=== PATIENT | female | born 1980 | race Caucasian/White ===

== ENCOUNTER 2017-01-28 13:27 | Emergency (ER) | payer OTHER ==
[2017-01-28] MEDS ORDERED: NS 1,000 ML IV ONE (13:54)
--- NOTE | 2017-01-28 13:56 | CPEKG ---
Heart Rate: 86 RR Interval: 698 P-R Interval: 124 QRSD Interval: 86 QT Interval: 352 QTC Interval: 421 P Chandler: 62 QRS Chandler: 82 T Wave Chandler: 8 EKG Severity - ABNORMAL ECG - EKG Impression: SINUS RHYTHM EKG Impression: RIGHT ATRIAL ABNORMALITY Electronically Signed By: Robin Méndez 01-Feb-2017 15:54:06
--- NOTE | 2017-01-28 13:59 | EDPHY ---
H & P Stated Complaint: pain in l chest above breast increases with movement/deep breath HPI/ROS: HPI CHIEF COMPLAINT: Left-sided sharp stabbing pain when she breathes in HISTORY OF PRESENT ILLNESS: The patient very pleasant 36-year-old female no significant medical history does not take any daily medications, not on control, no history of DVT or PE or cardiac disease. No family history of premature cardiac disease or sudden cardiac . She presents emergency room with over 24 hours of sharp stabbing left-sided lateral chest pain. It occurs when she breathes in when she takes a deep breath in. Last when she breathes out. Does not radiate anywhere. States during the night that it did feel more discomfort last night. No nausea no vomiting no diaphoresis, no neck pain, arm pain, numbness or tingling. No chest pressure. Describes the pain as sharp stabbing inspiratory. Additionally she tells me she has been working out vigorously recently more working out this past week than she normally does. She usually runs, pulse her daughter in a pulled behind, and also has been taking new exercise class. She was unclear sure if she injured her chest or pulled something. She denies pain with arm movement. Past Medical History: No significant medical history Past Surgical History: No significant surgical history Social History: Denies daily use of drugs alcohol tobacco products Family History: No premature cardiac disease, or cardiac disease in her family ROS REVIEW OF SYSTEMS: A comprehensive 10 point review of systems is otherwise negative aside from elements mentioned in the history of present illness. Exam Constitutional appears well nontoxic, triage nursing summary reviewed, vital signs reviewed, awake/alert. Eyes normal conjunctivae and sclera, EOMI, PERRLA. HENT normal inspection, atraumatic, moist mucus membranes, no epistaxis, neck supple/ no meningismus, no raccoon eyes. Respiratory clear to auscultation bilaterally, normal breath sounds, no respiratory distress, no wheezing. Cardiovascular rate normal, regular rhythm, no murmur, no edema, distal pulses normal. Gastrointestinal soft, non-tender, no rebound, no guarding, normal bowel sounds, no distension, no pulsatile mass. Genitourinary no CVA tenderness. Musculoskeletal no midline vertebral tenderness, full range of motion, no calf swelling, no tenderness of extremities, no meningismus, good pulses, neurovascularly intact. Skin pink, warm, & dry, no rash, skin atraumatic. Neurologic awake, alert and oriented x 3, AAOx3, moves all 4 extremities equally, motor intact, sensory intact, CN II-XII intact, normal cerebellar, normal vision, normal speech. Psychiatric normal mood/affect. Heme/Lymph/Immune no lymphadenopathy. 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 Re-evaluation: EKG interpretation by me on record in [employer] system. Impression time of EKG 1354, this is sinus rhythm 86, I do not appreciate any acute ischemic change on this EKG. There is no ST elevation, ST depression, T-wave abnormalities. Normal intervals. No signs of cardiac arrhythmia. Unremarkable EKG. 1511: Re-examination at this time this patient is resting comfortably she has no chest pain. She feels better after IV Toradol. In review of her workup here chest x-ray two view is unremarkable for acute cardiopulmonary disease. Her EKG does not show ischemia. Her troponin is negative D-dimer negative. Blood counts are appropriate. Symptoms are consistent with pleurisy. Improved after Toradol. Doubt acute coronary syndrome. I feel comfortable allowing her to go home. Rest her chest no strenuous exercise. Take anti-inflammatories if she has pain. She has severe pain I do recommend she return to the emergency room this includes severe chest pain, shortness of breath, nausea, vomiting, sweating. Fever. She understands. She may also follow up with Cardiology on outpatient basis for chest pain evaluation. However clinically here in emergency room with do not feel that this is her heart giving her this pain. Specifically I do not feel she has angina ACS or significant pulmonary pathology. EKG interpretation by me on record in [employer] system. Impression this is a repeat EKG time of EKG 1534 sinus rhythm rate of 70, no acute ischemic change. Specifically no ST elevation, ST depression, T-wave abnormalities. No prolonged intervals. PVC present. Otherwise unremarkable EKG. Repeat EKG is nonischemic. Unchanged. Repeat troponin negative. Patient feels much better after IV Toradol. Safe for discharge. Final diagnosis pleurisy. She understands return emergency room if she develops worsening symptoms questions or concerns. Source: Patient - Personal History LMP (Females 10-55): 22-28 Days Ago Current Tetanus/Diphtheria Vaccine: Yes - Medical/Surgical History Hx Asthma: No Hx Chronic Respiratory Disease: No Hx Diabetes: No Hx Cardiac Disease: No Hx Renal Disease: No Hx Cirrhosis: No Hx Alcoholism: No Hx HIV/AIDS: No Hx Splenectomy or Spleen Trauma: No Other PMH: Childbirth - Social History Smoking Status: Former smoker Constitutional: Initial Vital Signs Temperature (C) 37.1 C 01/28/17 13:41 Heart Rate 75 01/28/17 13:41 Respiratory Rate 20 01/28/17 13:41 Blood Pressure 99/57 L 01/28/17 13:41 O2 Sat (%) 100 01/28/17 13:41 O2 Delivery Mode Room Air Allergies/Adverse Reactions: No Known Allergies Allergy (Verified 01/28/17 13:41) Home Medications: Medication Instructions Recorded NK [No Known Home Meds] 01/13/14 Medical Decision Making - Diagnostics Imaging Results: Imaging Impressions Chest X-Ray 01/28/17 13:54 Impression: Normal. No explanation for pain. - Data Points Laboratory Results: Laboratory Results 01/28/17 13:55 01/28/17 13:55 01/28/17 01/28/17 01/28/17 15:30 13:55 13:55 WBC RBC Hgb Hct MCV MCH MCHC RDW Plt Count MPV Neut % (Auto) Lymph % (Auto) [place] % (Auto) Eos % (Auto) Baso % (Auto) Nucleat RBC Rel Count Absolute Neuts (auto) Absolute Lymphs (auto) Absolute Monos (auto) Absolute Eos (auto) Absolute Basos (auto) Absolute Nucleated RBC Immature Gran % Immature Gran # PT INR APTT D-Dimer Sodium 139 mEq/L mEq/L (134-144) Potassium 4.0 mEq/L mEq/L (3.5-5.2) Chloride 106 mEq/L mEq/L (97-110) Carbon Dioxide 23 mEq/l mEq/l (22-31) Anion Gap 10 mEq/L mEq/L (8-16) BUN 11 mg/dL mg/dL (7-23) Creatinine 0.8 mg/dL mg/dL (0.6-1.0) Estimated GFR > 60 Glucose 78 mg/dL mg/dL (70-100) Calcium 9.2 mg/dL mg/dL (8.5-10.4) Magnesium 2.1 mg/dL mg/dL (1.6-2.3) Total Bilirubin 2.0 mg/dL H mg/dL (0.1-1.4) Conjugated Bilirubin 0.3 mg/dL mg/dL (0.0-0.5) Unconjugated Bilirubin 1.7 mg/dL H mg/dL (0.0-1.1) AST 21 IU/L IU/L (14-46) ALT 20 IU/L IU/L (9-52) Alkaline Phosphatase 47 IU/L IU/L (38-126) Creatine Kinase 74 IU/L IU/L (0-156) CK-MB (CK-2) Fraction 0.24 ng/mL ng/mL (0-4.55) Troponin I < 0.012 ng/mL ng/mL < 0.012 ng/mL ng/mL (0-0.034) (0-0.034) NT-Pro-B Natriuret Pep 136 pg/mL H pg/mL (0-125) Total Protein 7.0 g/dL g/dL (6.3-8.2) Albumin 4.1 g/dL g/dL (3.5-5.0) Lipase 83.0 IU/L IU/L (23-300) Beta HCG, Qual NEGATIVE 01/28/17 01/28/17 13:55 13:55 WBC 6.39 10^3/uL 10^3/uL (3.80-9.50) RBC 4.68 10^6/uL 10^6/uL (4.18-5.33) Hgb 14.6 g/dL g/dL (12.6-16.3) Hct 41.9 % % (38.0-47.0) MCV 89.5 fL fL (81.5-99.8) MCH 31.2 pg pg (27.9-34.1) MCHC 34.8 g/dL g/dL (32.4-36.7) RDW 12.5 % % (11.5-15.2) Plt Count 203 10^3/uL 10^3/uL (150-400) MPV 12.1 fL H fL (8.7-11.7) Neut % (Auto) 69.3 % % (39.3-74.2) Lymph % (Auto) 20.5 % % (15.0-45.0) [place] % (Auto) 9.1 % % (4.5-13.0) Eos % (Auto) 0.3 % L % (0.6-7.6) Baso % (Auto) 0.6 % % (0.3-1.7) Nucleat RBC Rel Count 0.0 % % (0.0-0.2) Absolute Neuts (auto) 4.43 10^3/uL 10^3/uL (1.70-6.50) Absolute Lymphs (auto) 1.31 10^3/uL 10^3/uL (1.00-3.00) Absolute Monos (auto) 0.58 10^3/uL 10^3/uL (0.30-0.80) Absolute Eos (auto) 0.02 10^3/uL L 10^3/uL (0.03-0.40) Absolute Basos (auto) 0.04 10^3/uL 10^3/uL (0.02-0.10) Absolute Nucleated RBC 0.00 10^3/uL 10^3/uL (0-0.01) Immature Gran % 0.2 % % (0.0-1.1) Immature Gran # 0.01 10^3/uL 10^3/uL (0.00-0.10) PT 13.5 SEC SEC (12.0-15.0) INR 1.06 (0.83-1.16) APTT 29.5 SEC SEC (23.0-38.0) D-Dimer < 0.27 ug/mLFEU ug/mLFEU (0.00-0.50) Sodium Potassium Chloride Carbon Dioxide Anion Gap BUN Creatinine Estimated GFR Glucose Calcium Magnesium Total Bilirubin Conjugated Bilirubin Unconjugated Bilirubin AST ALT Alkaline Phosphatase Creatine Kinase CK-MB (CK-2) Fraction Troponin I NT-Pro-B Natriuret Pep Total Protein Albumin Lipase Beta HCG, Qual Medications Given: Discontinued Medications Sodium Chloride (Ns) 1,000 mls @ 0 mls/hr IV ONCE ONE; Wide Open PRN Reason: Protocol Stop: 01/28/17 13:55 Last Admin: 01/28/17 14:01 Dose: 1,000 mls Ketorolac Tromethamine (Toradol) 30 mg IVP EDNOW ONE Stop: 01/28/17 14:54 Last Admin: 01/28/17 14:58 Dose: 30 mg Departure - Departure Disposition: [facility] Clinical Impression: Pleurisy Chest pain Qualifiers: Chest pain type: chest pain on breathing Qualified Code(s): R07.1 - Chest pain on breathing Condition: Good Instructions: Chest Pain (ED), Pleurisy (ED) Additional Instructions: 1. Please rest. No strenuous exercise for the next week. 2. Take Tylenol Motrin you may alternate these every 4-6 hours for pain control. 3. Return emergency room if you have severe chest pain shortness of breath nausea vomiting questions or concerns. 4. You may follow up with Cardiology on outpatient basis. Call their for follow -up appointment. Referrals: Lindsay Castellanos NP [Primary Care Provider] - As per Instructions Alex Dent MD [Medical Doctor] - As per Instructions
[2017-01-28 14:03] VITALS: RESP 16
[2017-01-28 14:09] LABS: % IMMATURE GRANULYOCYTES 0.2 % (0.0-1.1); ABSOLUTE IMMATURE GRANULOCYTES 0.01 10^3/uL (0.00-0.10); ADD DIFF? NO; ADD MORPH? NO; ADD SCAN? NO; ATYPICAL LYMPHOCYTE FLAG 10 (0-99); FRAGMENT RBC FLAG 0 (0-99); HEMATOCRIT 41.9 % (38.0-47.0); HEMOGLOBIN 14.6 g/dL (12.6-16.3); LEFT SHIFT FLG 0 (0-99); LIPEMIA HEMOLYSIS FLAG 90 (0-99); MEAN CELL HEMOGLOBIN 31.2 pg (27.9-34.1); MEAN CELL HEMOGLOBIN CONCENTR. 34.8 g/dL (32.4-36.7); MEAN CELL VOLUME 89.5 fL (81.5-99.8); MEAN PLATELET VOLUME 12.1 fL (8.7-11.7); PLATELET CLUMPS FLAG 0 (0-99); PLATELET COUNT 203 10^3/uL (150-400); RED BLOOD CELL COUNT 4.68 10^6/uL (4.18-5.33); RED CELL DISTRIBUTION WIDTH 12.5 % (11.5-15.2)
[2017-01-28 14:23] LABS: APTT 29.5 SEC (23.0-38.0); INR 1.06 (0.83-1.16); PROTIME(PATIENT) 13.5 SEC (12.0-15.0)
[2017-01-28 14:26] LABS: ALANINE AMINOTRANSFERASE 20 IU/L (9-52); ALBUMIN 4.1 g/dL (3.5-5.0); ALKALINE PHOSPHATASE 47 IU/L (38-126); ANION GAP 10 mEq/L (8-16); ASPARTATE AMINOTRANSFERASE 21 IU/L (14-46); BILIRUBIN-CONJUGATED 0.3 mg/dL (0.0-0.5); BILIRUBIN-UNCONJUGATED 1.7 mg/dL (0.0-1.1); CALCIUM 9.2 mg/dL (8.5-10.4); CARBON DIOXIDE 23 mEq/l (22-31); CHLORIDE 106 mEq/L (97-110); CREATININE 0.8 mg/dL (0.6-1.0); GLOMERULAR FILTRATION RATE > 60; GLUCOSE 78 mg/dL (70-100); MAGNESIUM 2.1 mg/dL (1.6-2.3); SODIUM 139 mEq/L (134-144)
[2017-01-28 14:38] LABS: CREATINE KINASE-MB FRACTION 0.24 ng/mL (0-4.55); TROPONIN I < 0.012 ng/mL (0-0.034)
[2017-01-28] MEDS ORDERED: KETOROLAC 30 MG/1 ML SDV IVP ONE (14:53)
--- NOTE | 2017-01-28 15:36 | CPEKG ---
Heart Rate: 70 RR Interval: 857 P-R Interval: 128 QRSD Interval: 86 QT Interval: 384 QTC Interval: 415 P [place]: 69 QRS [place]: 80 T Wave [place]: 47 EKG Severity - OTHERWISE NORMAL ECG - EKG Impression: SINUS RHYTHM EKG Impression: VENTRICULAR PREMATURE COMPLEX Electronically Signed By: Robin Méndez 01-Feb-2017 15:54:11
[2017-01-28 16:12] VITALS: BP 108/47; PULSE 75; TEMP 98.6; O2SAT 95
== END 2017-01-28 16:10 | disposition home or self-care (01) ==
LOC: CED 13:27
DX: R07.1 Chest pain on breathing (principal)
CPT/HCPCS: 71020-PO; 80048-PO; 80076-PO; 82550-PO; 82553-PO; 83690-PO; 83735-PO; 83880-PO; 84484-PO; 84703-PO; 85025-PO; 85378-PO; 85610-PO; 85730-PO; 96374; J1885

== ENCOUNTER 2017-08-02 12:00 | Emergency (ER) | payer OTHER ==
[2017-08-02 12:15] VITALS: RESP 18
--- NOTE | 2017-08-02 12:16 | CPEKG ---
Heart Rate: 75 RR Interval: 800 P-R Interval: 128 QRSD Interval: 90 QT Interval: 396 QTC Interval: 443 P Tracy: 76 QRS Tracy: 78 T Wave Tracy: 42 EKG Severity - NORMAL ECG - EKG Impression: SINUS RHYTHM Electronically Signed By: Biju Peguero 02-Aug-2017 14:30:38
--- NOTE | 2017-08-02 12:48 | EDPHY ---
H & P Stated Complaint: LEFT SIDED CHEST PAIN FOR 3 DAYS, INTERMITTENTLY, NON- RADIATION Time Seen by Provider: 08/02/17 12:18 HPI/ROS: This patient complains of left-sided chest pain described as sharp in nature located in left upper anterior chest and lower lateral chest. The pain has been intermittent for the past 3 days lasting up to 30 min at a time but usually brief in duration 2-5 minutes or so. She notes no exacerbating for this pain. She also complains of bilateral upper back pain that she feels a separate from the chest pain achy in nature similar to prior back pain. She is seeing physical therapy for this. The back pain is moderate intensity. Finally , she reports a 5 day history of intermittent left parietal headache that has a peak intensity of 6/10 and resolves with ibuprofen. She has not taken any ibuprofen today. She called her primary care physician regarding the symptoms and was instructed to proceed emergency department for evaluation. She drove herself here by private vehicle. ROS: Constitutional: No fevers or chills. HEENT: No coryza or nasal congestion. No sore throat. No ear pain. She did have sinusitis May but states the symptoms resolved after a course of Augmentin. Pulmonary: No coughing. No shortness of breath. No worsening of her chest pain with a deep breath. Cardiovascular: No lightheadedness. Musculoskeletal: Patient reports left leg pain over the past few days that is now improved but was [id number] intensity located the posterior calf. GI: No abdominal pain, nausea vomiting or diarrhea. She does have mild constipation reports this is consistent with her history of IBS. : No dysuria, frequency urgency. Integumentary: No skin rash Psychiatric She reports anxiety recently attributable to a in the family. Currently her is out of town attending the . She denies any suicidal ideation. Neuro: No throbbing component to her headache. No focal numbness tingling or weakness. No visual changes. No confusion. Endocrine: No complaints Complete review of symptoms is otherwise negative. Source: Patient Exam Limitations: No limitations - Personal History LMP (Females 10-55): 1-7 Days Ago - Medical/Surgical History PMH: Pleurisy Hx Asthma: No Hx Chronic Respiratory Disease: No Hx Diabetes: No Hx Cardiac Disease: No Hx Renal Disease: No Hx Cirrhosis: No Hx Alcoholism: No Hx HIV/AIDS: No Hx Splenectomy or Spleen Trauma: No Other PMH: IBS - Social History Smoking Status: Former smoker Alcohol Use: None Drug Use: None Constitutional: Initial Vital Signs Temperature (C) 36.7 C 08/02/17 12:06 Heart Rate 82 08/02/17 12:06 Respiratory Rate 18 08/02/17 12:06 Blood Pressure 139/73 H 08/02/17 12:06 O2 Sat (%) 100 08/02/17 12:06 O2 Delivery Mode Room Air Allergies/Adverse Reactions: No Known Allergies Allergy (Verified 08/02/17 12:06) Home Medications: Medication Instructions Recorded Lidocaine 5% [Lidoderm 5% Patch 1 ea TD DAILY #10 patch 08/02/17 (*)] Methocarbamol [Robaxin 750 mg (*)] 750 - 1,500 mg PO QID PRN #30 tab 08/02/17 Medical Decision Making - Diagnostics EKG Interpretation: 12 lead EKG performed shortly after arrival indication for rule out right heart strain or other abnormalities Sinus rhythm at 75 Intervals: Normal throughout [place]: Normal throughout ST segments: Normal throughout Overall assessment: Normal EKG Imaging Results: Imaging Impressions Chest X-Ray 08/02/17 13:23 Impression: Normal. No explanation for left-sided pain. Imaging: I viewed and interpreted images myself ED Course/Re-evaluation: The discussion: Patient with left calf pain recently in atypical chest pain along with musculoskeletal back pain and a headache with findings consistent with a tension headache. Given her recent calf pain and chest pain will rule out PE. Review of studies reveals normal CBC, chemistries, normal troponin, normal D- dimer Chest x-ray was also normal an EKG was normal. The her findings are most consistent with musculoskeletal source of pain along with tension headache. I counseled her regarding this. The patient declined analgesics while here. After workup no evidence of pneumonia, pneumothorax, PE or other concerning findings in terms of potential cardio pulmonary pathology. However, she understands that the workup here is preliminary and she will return for any significant worsening of her symptoms despite the treatment plan. She will follow up with primary care physician for any ongoing symptoms. - Data Points Laboratory Results: Laboratory Results 08/02/17 12:40 08/02/17 12:40 08/02/17 08/02/17 08/02/17 12:40 12:40 12:40 WBC 6.48 10^3/uL 10^3/uL (3.80-9.50) RBC 4.46 10^6/uL 10^6/uL (4.18-5.33) Hgb 14.0 g/dL g/dL (12.6-16.3) Hct 39.9 % % (38.0-47.0) MCV 89.5 fL fL (81.5-99.8) MCH 31.4 pg pg (27.9-34.1) MCHC 35.1 g/dL g/dL (32.4-36.7) RDW 11.9 % % (11.5-15.2) Plt Count 205 10^3/uL 10^3/uL (150-400) MPV 11.2 fL fL (8.7-11.7) Neut % (Auto) 78.3 % H % (39.3-74.2) Lymph % (Auto) 13.3 % L % (15.0-45.0) [place] % (Auto) 7.1 % % (4.5-13.0) Eos % (Auto) 0.5 % L % (0.6-7.6) Baso % (Auto) 0.6 % % (0.3-1.7) Nucleat RBC Rel Count 0.0 % % (0.0-0.2) Absolute Neuts (auto) 5.08 10^3/uL 10^3/uL (1.70-6.50) Absolute Lymphs (auto) 0.86 10^3/uL L 10^3/uL (1.00-3.00) Absolute Monos (auto) 0.46 10^3/uL 10^3/uL (0.30-0.80) Absolute Eos (auto) 0.03 10^3/uL 10^3/uL (0.03-0.40) Absolute Basos (auto) 0.04 10^3/uL 10^3/uL (0.02-0.10) Absolute Nucleated RBC 0.00 10^3/uL 10^3/uL (0-0.01) Immature Gran % 0.2 % % (0.0-1.1) Immature Gran # 0.01 10^3/uL 10^3/uL (0.00-0.10) D-Dimer < 0.27 ug/mLFEU ug/mLFEU (0.00-0.50) Sodium 140 mEq/L mEq/L (134-144) Potassium 4.3 mEq/L mEq/L (3.5-5.2) Chloride 102 mEq/L mEq/L (97-110) Carbon Dioxide 25 mEq/l mEq/l (22-31) Anion Gap 13 mEq/L mEq/L (8-16) BUN 11 mg/dL mg/dL (7-23) Creatinine 0.7 mg/dL mg/dL (0.6-1.0) Estimated GFR > 60 Glucose 105 mg/dL H mg/dL (70-100) Calcium 9.3 mg/dL mg/dL (8.5-10.4) Troponin I < 0.012 ng/mL ng/mL (0.000-0.034) Departure - Departure Disposition: Home, Routine, Self-Care Clinical Impression: Atypical chest pain, Upper back pain, Tension headache Condition: Good Instructions: Chest Pain (ED), Tension Headache (ED), Thoracic Pain (ED) Additional Instructions: Diagnoses: 1. Atypical chest pain 2. Upper back pain 3. Tension headache Plan: Ibuprofen and Tylenol for pain. Lidoderm patch to back in addition if needed Methocarbamol muscle relaxant in addition for back neck and headache pain. Daily stretches as mention. Also, consider Foundation exercises for her back. Return for any significant worsening despite the treatment plan. Referrals: Lindsay Castellanos, [facility] [Primary Care Provider] - As per Instructions Prescriptions: Lidocaine 5% [Lidoderm 5% Patch (*)] 1 ea TD DAILY #10 patch Methocarbamol [Robaxin 750 mg (*)] 750 - 1,500 mg PO QID PRN #30 tab PRN Reason: Muscle Spasms
[2017-08-02 13:02] LABS: PLATELET COUNT 205 10^3/uL (150-400)
[2017-08-02 14:06] VITALS: BP 107/60; PULSE 77; TEMP 98.2; O2SAT 97
== END 2017-08-02 14:06 | disposition home or self-care (01) ==
LOC: CED 12:00
DX: R07.89 Other chest pain (principal); M54.6 Pain in thoracic spine; G44.209 Tension-type headache, unspecified, not intractable; Z87.891 Personal history of nicotine dependence
CPT/HCPCS: 71046-PO; 80048-PO; 84484-PO; 85025-PO; 85378-PO

== ENCOUNTER 2018-02-17 20:57 | Emergency (ER) | payer OTHER ==
--- NOTE | 2018-02-17 22:10 | EDPHY ---
H & P Time Seen by Provider: 02/17/18 22:01 HPI/ROS: CHIEF COMPLAINT: Throat tightness HISTORY OF PRESENT ILLNESS: Patient is a 37-year-old female who was recently diagnosed with hyperthyroidism 2 weeks ago. She reports 2 days after starting medication for hypothyroidism she developed a sensation of tightness in her throat. She denies any trouble swallowing or breathing or wheezing. She has noticed no rash. Additionally she has had no upper respiratory symptoms including no cough, runny nose, fever, sore throat. She has tried no medications to alleviate her pain. She denies any chest pain shortness of breath. She tried stopping her medication for a few days this did not affect her symptoms. REVIEW OF SYSTEMS: Constitutional: No fever, no chills. Eyes: No discharge. ENT: No sore throat. Cardiovascular: No chest pain, no palpitations. Respiratory: No cough, no shortness of breath. Gastrointestinal: No abdominal pain, no vomiting. Genitourinary: No hematuria. Musculoskeletal: No back pain. Skin: No rashes. Neurological: No headache. Smoking Status: Former smoker Physical Exam: General Appearance: Alert and no distress. Eyes: Pupils equal and round no injection. Respiratory: Chest is nontender, lungs are clear to auscultation. Cardiac: regular rate and rhythm. Gastrointestinal: Abdomen is soft and nontender, no masses, bowel sounds normal. Musculoskeletal: Neck is supple and nontender. Extremities have full range of motion and are nontender. Skin: No rashes or lesions. Neck: No stridor, no cervical lymphadenopathy Constitutional: Initial Vital Signs Temperature (C) 36.9 C 02/17/18 21:01 Heart Rate 97 02/17/18 21:01 Respiratory Rate 16 02/17/18 21:01 Blood Pressure 125/85 H 02/17/18 21:01 O2 Sat (%) 99 02/17/18 21:01 O2 Delivery Mode Room Air Allergies/Adverse Reactions: No Known Allergies Allergy (Verified 08/02/17 12:06) Home Medications: Medication Instructions Recorded Lidocaine 5% [Lidoderm 5% Patch 1 ea TD DAILY #10 patch 08/02/17 (*)] Methocarbamol [Robaxin 750 mg (*)] 750 - 1,500 mg PO QID PRN #30 tab 08/02/17 Medical Decision Making - Diagnostics Imaging Results: Imaging Impressions Cervical Spine CT 02/17/18 22:21 Impression: 1. Normal CT cervical spine. 2. The soft tissues about the neck are normal in appearance. 3. Incidental fluid in the right maxillary sinus. Findings discussed with David Soto PAC at 22:52 hour, 02/17/2018. ED Course/Re-evaluation: 37-year-old female here with 2 weeks of sensation of throat tightness. On exam posterior pharynx, tonsils and uvula appear normal. There is no stridor or increased work of breathing on exam. CT scan of the neck reveals normal appearing thyroid with patent airway and normal epiglottis. Patient declined oral steroids. She was given follow-up with ENT if she has persistent symptoms. - Data Points Medications Given: Discontinued Medications Dexamethasone (Decadron Injection) 10 mg PO EDNOW ONE Stop: 02/17/18 22:13 Last Admin: 02/17/18 22:41 Dose: Not Given Departure - Departure Disposition: Home, Routine, Self-Care Clinical Impression: Throat tightness Condition: Good Instructions: Pharyngitis (ED) Additional Instructions: Please follow up with Ear Nose and Throat next week if her symptoms are not improving or resolving Referrals: NONE *PRIMARY CARE P,. [Primary Care Provider] - As per Instructions Vel Greene MD [Medical Doctor] - As per Instructions
[2018-02-17] MEDS ORDERED: DEXAMETHASONE 10 MG/ML VIAL PO ONE (22:12)
[2018-02-17 23:24] VITALS: BP 120/70
== END 2018-02-17 23:24 | disposition home or self-care (01) ==
DX: R07.0 Pain in throat (principal); Z87.891 Personal history of nicotine dependence
CPT/HCPCS: J1100

== ENCOUNTER → 2018-02-21 | Outpatient (CLI) | payer OTHER | LOC: CIMAGING 11:32 | PROVIDERS: ATTEND Nurse Practitioner | DX: R09.89 Other specified symptoms and signs involving the circulatory and respiratory systems (principal); E03.9 Hypothyroidism, unspecified | CPT/HCPCS: 76536-PO ==

== ENCOUNTER 2018-02-23 03:52 | Emergency (ER) | payer OTHER ==
--- NOTE | 2018-02-23 04:31 | EDPHY ---
H & P Stated Complaint: L chest pain for 12 hours. Constant, just of thyroid meds. Time Seen by Provider: 02/23/18 04:06 HPI/ROS: CC: Chest pain since yesterday HPI: This 37-year-old female with past medical history of pleurisy presents emergency department today complaining of chest pain since yesterday. It was sharp and intermittent. She woke up at 2:00 a.m. With dull discomfort on the left side of her chest radiating to her upper back which has been constant. It was difficult for her to fall back asleep so she called the nurse hotline and they advised her to come to the emergency department. She rates it at 4/10. She did not take anything for the pain. She does not feel short of breath and has not had nausea or vomiting. She has not been diaphoretic. She said she has had a scant cough recently but no real illness. Recent drive through [place] to [place]. She had been started on thyroid medication a short time back and was having a lot of side effects one of which was throat tightness. She had a CT scan of her neck last week as well as a thyroid ultrasound yesterday and both were normal. Therefore, her provider stopped her thyroid medication. She states her provider is going to refer her to a dials inspector to see if she has reflux. No family history of premature coronary artery disease. REVIEW OF SYSTEMS: Constitutional: No fever, no chills. Eyes: No discharge. ENT: No sore throat. Respiratory: No shortness of breath. Cardiac: No palpitations. Gastrointestinal: Mild epigastric discomfort. Genitourinary: No dysuria. Musculoskeletal: No calf pain or swelling. Skin: No rashes. Neurological: No headache. Source: Patient Exam Limitations: No limitations - Personal History LMP (Females 10-55): 15-21 Days Ago Current Tetanus/Diphtheria Vaccine: Yes Current Tetanus Diphtheria and Acellular Pertussis (TDAP): Yes Tetanus Vaccine Date: 2012 - Medical/Surgical History PMH: PMH: Pleurisy PSH: Denied FH: Sister with hypothyroidism; No family history of premature coronary artery disease. NKDA Meds: Recently taken off levothyroxine LMP: 2 weeks ago. - four year old daughter PCP: Lindsay Castellanos NP Hx Asthma: No Hx Chronic Respiratory Disease: No Hx Diabetes: No Hx Cardiac Disease: No Hx Renal Disease: No Hx Cirrhosis: No Hx Alcoholism: No Hx HIV/AIDS: No Hx Splenectomy or Spleen Trauma: No Other PMH: Hypothyroid, IBS, Pleurisy, acid reflux in workup. - Social History Smoking Status: Former smoker Additional Social History: . 4 year old daughter. Former smoker - quit 15 years ago. No tobacco products. No ETOH. No marijuana or illicit drug use. - Physical Exam Exam: General Appearance: Alert, no distress. Eyes: Pupils equal and round no pallor or injection. ENT, Mouth: Mucous membranes are moist. No pharyngeal erythema. Respiratory: There are no retractions, lungs are clear to auscultation. Equal bilaterally. Cardiovascular: Regular rate and rhythm. No murmur, gallops, or rubs. Gastrointestinal: Abdomen is soft and nontender, no masses, bowel sounds normal. Neurological: Awake and alert, sensory and motor exams grossly normal. Skin: Warm and dry, no rashes. Musculoskeletal: Neck is supple, nontender. No clubbing, cyanosis, or edema. No calf tenderness, warmth, cords, or erythema. Extremities with full range of motion. Psychiatric: Patient is oriented X 3, there is no agitation. DIFFERENTIAL DIAGNOSIS: After history and physical exam differential diagnosis was considered for but not limited to: VA, pleurisy, pericarditis, PE, pneumonia, pneumothorax, gastroesophageal reflux, biliary, musculoskeletal Constitutional: Initial Vital Signs Heart Rate 71 02/23/18 04:00 Respiratory Rate 16 02/23/18 04:00 Blood Pressure 110/66 02/23/18 04:00 O2 Sat (%) 96 02/23/18 04:00 O2 Delivery Mode Room Air Allergies/Adverse Reactions: No Known Allergies Allergy (Verified 02/23/18 03:53) Home Medications: Medication Instructions Recorded NK [No Known Home Meds] 02/23/18 Medical Decision Making - Diagnostics EKG Interpretation: 0408 NSR, HR 74, no acute ischemic changes. Imaging Results: 2 view CXR - NAD Imaging: I viewed and interpreted images myself ED Course/Re-evaluation: The patient was seen and examined. Vital signs reviewed and were normal. Her EKG was completely normal. CBC, comprehensive metabolic panel and troponin were also normal. Two view chest x-ray showed no acute cardiopulmonary findings. The patient declined pain medication while she was here. Her symptoms are unlikely to be of cardiopulmonary etiology. She did not meet PERC criteria for d-dimer and symptoms not consistent with PE. She was reassured and will follow up with her primary care provider. She was advised to return to the emergency room if she has any further problems or concerns. - Data Points Laboratory Results: 02/23/18 02/23/18 04:27 04:26 POC Sodium 138 mEq/L mEq/L (135-145) POC Potassium 4.6 mEq/L mEq/L (3.3-5.0) POC Chloride 110.0 mEq/L mEq/L (97-110) POC Total CO2 27 mEq/L mEq/L (22-31) POC BUN 17 mg/dL mg/dL (7-23) POC Creatinine 0.9 mg/dL mg/dL (0.6-1.0) POC Glucose 125 mg/dL H mg/dL (70-100) POC Calcium 9.0 mg/dL mg/dL (8.5-10.4) POC Total Bilirubin 1.1 mg/dL mg/dL (0.1-1.4) POC AST 27 IU/L IU/L (14-46) POC ALT 18 IU/L IU/L (9-52) POC Alk Phosphatase 40 IU/L IU/L (38-126) POC Troponin I 0.00 ng/mL ng/mL (0.00-0.08) POC Total Protein 6.6 g/dL g/dL (6.3-8.2) POC Albumin 3.5 g/dL g/dL (3.5-5.0) Point of Care Test Results: CBC CBC Collection Date 02/23/18 CBC Collection Time 04:15 WBC 5.2 RBC 4.37 HGB 13.4 HCT 40.4 PLT 184 Neut # 3.3 Neut 63.7 LYMPH # 1.3 LYMPH 24.7 Other WBC # 0.6 Other WBC 11.6 MCV 92.4 Chemistry 02/23/18 02/23/18 04:27 04:26 POC Sodium 138 mEq/L mEq/L (135-145) POC Potassium 4.6 mEq/L mEq/L (3.3-5.0) POC Chloride 110.0 mEq/L mEq/L (97-110) POC Total CO2 27 mEq/L mEq/L (22-31) POC BUN 17 mg/dL mg/dL (7-23) POC Creatinine 0.9 mg/dL mg/dL (0.6-1.0) POC Glucose 125 mg/dL H mg/dL (70-100) POC Calcium 9.0 mg/dL mg/dL (8.5-10.4) POC Total Bilirubin 1.1 mg/dL mg/dL (0.1-1.4) POC AST 27 IU/L IU/L (14-46) POC ALT 18 IU/L IU/L (9-52) POC Alk Phosphatase 40 IU/L IU/L (38-126) POC Troponin I 0.00 ng/mL ng/mL (0.00-0.08) POC Total Protein 6.6 g/dL g/dL (6.3-8.2) POC Albumin 3.5 g/dL g/dL (3.5-5.0) Departure - Departure Disposition: Home, Routine, Self-Care Clinical Impression: Chest pain in adult Condition: Good Instructions: Chest Pain (ED), Noncardiac Chest Pain (ED) Additional Instructions: Follow up with your primary care provider this week. Return to the ED if symptoms change or worsen. Referrals: Lindsay Castellanos PAINT ROLLER COVER MACHINE SETTER [Certified Nurse Practioner] - As per Instructions
--- NOTE | 2018-02-23 04:45 | CPEKG ---
Heart Rate: 74 RR Interval: 811 P-R Interval: 128 QRSD Interval: 84 QT Interval: 392 QTC Interval: 435 P [place]: 69 QRS [place]: 75 T Wave [place]: 33 EKG Severity - NORMAL ECG - EKG Impression: SINUS RHYTHM Electronically Signed By: Carly Joshi 23-Feb-2018 04:55:18
[2018-02-23 05:09] VITALS: BP 115/76
== END 2018-02-23 05:09 | disposition home or self-care (01) ==
LOC: CED 03:52
DX: J98.09 Other diseases of bronchus, not elsewhere classified (principal); Z87.09 Personal history of other diseases of the respiratory system; Z87.891 Personal history of nicotine dependence
CPT/HCPCS: 71046-PO; 80053-PO; 84484-PO

== ENCOUNTER 2018-04-07 20:43 | Emergency (ER) | payer OTHER ==
--- NOTE | 2018-04-07 22:10 | EDPHY ---
H & P Stated Complaint: chest pain today Time Seen by Provider: 04/07/18 20:47 HPI/ROS: 38 yo F with prior hx of pleurisy, and a visit in January for chest pain presents today after going to an urgent care for a left side lower chest stabbing chest pain that lasts usually 30-60 seconds and was recurrent throughout the day. No shortness of breath, no fever or chills. She recently had work up for throat tightness with ct neck and ultrasound of her thyroid which were negative. On her visit in January to the ED, basic labs, ekg, and cxr were normal. She states she does alot of heavy lifting at work and at home with her 4 year old child. She also states she is high anxiety person, though not on medication for it. Review of systems As per HPI General no fever no chills no weakness HEENT no eye pain no eye discharge. No eye redness, no sore throat Respiratory no cough, no shortness of breath Cardiac positive chest pain, no peripheral edema GI no abdominal pain, no diarrhea, no constipation, no nausea, no vomiting no flank pain, no hematuria, no dysuria Musculoskeletal positive myalgias, no joint pain Heme no easy bruising, no easy bleeding Endo no polyuria, no polydipsia Skin no rashes, no pruritus Neuro no syncope, no dizziness, positive headaches Psych is no suicidal ideation, no homicidal ideation Source: Patient Exam Limitations: No limitations - Personal History LMP (Females 10-55): 1-7 Days Ago Current Tetanus Diphtheria and Acellular Pertussis (TDAP): Yes Tetanus Vaccine Date: 2012 - Medical/Surgical History Hx Asthma: No Hx Chronic Respiratory Disease: No Hx Diabetes: No Hx Cardiac Disease: No Hx Renal Disease: No Hx Cirrhosis: No Hx Alcoholism: No Hx HIV/AIDS: No Hx Splenectomy or Spleen Trauma: No Other PMH: Hypothyroid, IBS, Pleurisy, acid reflux - Family History Significant Family History: No pertinent family hx - Social History Smoking Status: Former smoker Alcohol Use: None Drug Use: None - Physical Exam Exam: 38-year-old female alert and oriented, slightly rapid speech, thin, vital signs stable, afebrile, no acute distress HEENT atraumatic normocephalic, extraocular muscles intact, anicteric Oropharynx negative for erythema negative exudate, tolerating her own secretions Neck supple no meningismus, no JVD Lungs clear to auscultation bilaterally Heart regular rate and rhythm without murmur rub or gallop Abdomen nondistended normoactive bowel sounds soft nontender Back no CVA tenderness, no step-offs, no spinal tenderness Extremities no cyanosis clubbing or edema Neuro alert and oriented, no focal deficits Constitutional: Initial Vital Signs Temperature (C) 36.9 C 04/07/18 20:51 Heart Rate 106 H 04/07/18 20:51 Respiratory Rate 16 04/07/18 20:51 Blood Pressure 119/66 04/07/18 20:51 O2 Sat (%) 96 04/07/18 20:51 O2 Delivery Mode Room Air Allergies/Adverse Reactions: No Known Allergies Allergy (Verified 04/07/18 20:51) Home Medications: Medication Instructions Recorded NK [No Known Home Meds] 02/23/18 Medical Decision Making - Diagnostics EKG Interpretation: EKG normal sinus rhythm Shortened pr Interval No delta waves ED Course/Re-evaluation: Patient seen and evaluated for left-sided chest pain, stabbing in nature 30-60 seconds duration. EKG normal sinus rhythm Labs including BMP, troponin, D-dimer all normal Physical exam normal Impression Atypical chest pain Anxiety Plan Home Follow-up PCP Differential Diagnosis: Differential diagnosis considered but not limited to Myocardial infarction, pleurisy, pulmonary embolism, pneumonia, acute anxiety - Data Points Laboratory Results: 04/07/18 04/07/18 21:25 21:20 POC Hgb 12.6 gm/dL gm/dL (12.6-16.3) POC Hct 37 % L % (38-47) POC Sodium 140 mEq/L mEq/L (135-145) POC Potassium 3.9 mEq/L mEq/L (3.3-5.0) POC Chloride 104 mEq/L mEq/L (97-110) POC BUN 15 mg/dL mg/dL (7-23) POC Creatinine 0.9 mg/dL mg/dL (0.6-1.0) POC Glucose 100 mg/dL mg/dL (70-100) POC Troponin I 0.00 ng/mL ng/mL (0.00-0.08) Point of Care Test Results: Chemistry 04/07/18 04/07/18 21:25 21:20 POC Sodium 140 mEq/L mEq/L (135-145) POC Potassium 3.9 mEq/L mEq/L (3.3-5.0) POC Chloride 104 mEq/L mEq/L (97-110) POC BUN 15 mg/dL mg/dL (7-23) POC Creatinine 0.9 mg/dL mg/dL (0.6-1.0) POC Glucose 100 mg/dL mg/dL (70-100) POC Troponin I 0.00 ng/mL ng/mL (0.00-0.08) ISTAT H&H 04/07/18 21:25 POC Hgb 12.6 gm/dL gm/dL (12.6-16.3) POC Hct 37 % L % (38-47) D-Dimer D-Dimer Collection Date 04/07/18 D-Dimer Collection Time 21:14 D-Dimer (ng/ml) <100 Departure - Departure Disposition: Home, Routine, Self-Care Clinical Impression: Chest pain, atypical Condition: Good Instructions: Chest Pain (ED), Noncardiac Chest Pain (ED) Referrals: Lindsay Castellanos, [employer] ARTILLERY CREWMEMBER [Primary Care Provider] - As per Instructions
[2018-04-07 23:41] VITALS: BP 102/66
--- NOTE | 2018-04-07 23:41 | CPEKG ---
Test Reason : OPEN Blood Pressure : / mmHG Vent. Rate : 083 BPM Atrial Rate : 082 BPM P-R Int : 087 ms QRS Dur : 086 ms QT Int : 369 ms P-R-T Axes : 005 079 034 degrees QTc Int : 434 ms Sinus rhythm Short TX interval no delta wave Confirmed by Claudette Quintana ([id number]) on 04/07/2018 11:40:39 PM Referred By: Confirmed By:Claudette Quintana
== END 2018-04-07 23:27 | disposition home or self-care (01) ==
LOC: CED 20:43
DX: R07.9 Chest pain, unspecified (principal); F41.9 Anxiety disorder, unspecified; Z87.891 Personal history of nicotine dependence
CPT/HCPCS: 82435-PO; 82565-PO; 82947-PO; 84132-PO; 84295-PO; 84484-PO; 84520-PO; 85014-PO

== ENCOUNTER 2018-07-22 09:11 | Emergency (ER) | payer OTHER ==
[2018-07-22] MEDS ORDERED: HYOSCYAMINE SULFATE 0.125 MG TAB PO ONE (09:46)
[2018-07-22] MEDS ORDERED: MAG HYDROX/AL HYDROX/SIMETH 30 ML UDCUP PO ONE (09:46)
--- NOTE | 2018-07-22 10:18 | EDPHY ---
H & P Stated Complaint: midsternal chest pain started 3 days ago, being tx for GERD Time Seen by Provider: 07/22/18 09:19 HPI/ROS: This patient presents with chest pain that radiates to her back. She reports that she has had similar pains in the past with negative workup in terms of EKG and labs but explains that this episode has a more prominent back pain component that concerned her feet. She does report that she has had increased GERD symptoms recently increased stress and she thinks that the symptoms are likely attributable to this. She has been taking Zantac 150 mg at bedtime and has noticed relief. Her symptoms started 5 days prior to arrival-intermittent until the last 2 days when the pain is been constant ranging from 5/10 to 7/10 intensity. Currently she reports that it is 5/10 combination of pressure and burning discomfort in the epigastrium to mid chest that radiates to her back. She notes no clear exacerbating factors. Other than the Zantac she has not tried any medications for the pain. She drove herself here by private vehicle for evaluation. ROS: Constitutional: No fevers. No other constitutional symptoms HEENT: No complaints except of test slight tight feeling in her throat that she has had with a previous episode of GERD. Pulmonary: No dyspnea. No significant coughing Cardiovascular: Occasional increased heart rate the comes in gradually. No abrupt palpitations or lightheadedness. No lower extremity swelling or calf pain. GI: She reports 4 to 5/10 upper belly discomfort also pressure achy feeling. She has associated nausea but no vomiting. She reports normal bowel movements. No bloating. : Last menstrual period was normal timing. She has no dysuria or other complaints. Integumentary: No diaphoresis or pallor. Neuro: No numbness or tingling 10 point review of symptoms is performed and otherwise negative with exception of pertinent positives and negatives listed in HPI and ROS - Personal History LMP (Females 10-55): 8-14 Days Ago Tetanus Vaccine Date: 2012 - Medical/Surgical History PMH: GERD Hx Asthma: No Hx Chronic Respiratory Disease: No Hx Diabetes: No Hx Cardiac Disease: No Hx Renal Disease: No Hx Cirrhosis: No Hx Alcoholism: No Hx HIV/AIDS: No Hx Splenectomy or Spleen Trauma: No Other PMH: Hypothyroid, IBS, Pleurisy, acid reflux - Family History Significant Family History: No pertinent family hx - Social History Smoking Status: Former smoker Alcohol Use: Rarely Drug Use: None Additional Social History: She works in [employer] in [place] requires a lot of physical lifting and walking. - Physical Exam Exam: General Appearance: Pleasant 30-year-old female Alert, no distress. Eyes: Pupils equal and round no pallor or injection. ENT, Mouth: Mucous membranes moist. Respiratory: There are no retractions, lungs are clear to auscultation. Cardiovascular: Regular rate and rhythm. No murmur gallop or rub Gastrointestinal: Abdomen is soft and nontender, no masses, bowel sounds normal. Neurological: GCS 15 Skin: Warm and dry, no rashes. Musculoskeletal: Neck is supple nontender. Extremities are symmetrical, full range of motion. Psychiatric: Mood and affect are normal DIFFERENTIAL DIAGNOSIS: After history and physical exam differential diagnosis was considered for GERD with esophageal spasm, pancreatitis, pneumothorax, aortic dissection, pneumonia, myocarditis, Constitutional: Initial Vital Signs Temperature (C) 36.7 C 07/22/18 09:18 Heart Rate 89 07/22/18 09:18 Respiratory Rate 18 07/22/18 09:18 Blood Pressure 123/71 H 07/22/18 09:18 O2 Sat (%) 99 07/22/18 09:18 O2 Delivery Mode Room Air Allergies/Adverse Reactions: No Known Allergies Allergy (Verified 04/07/18 20:51) Home Medications: Medication Instructions Recorded Hyoscyamine Sulfate [Levsin, 0.125 - 0.25 mg SL Q6 PRN #20 tab 07/22/18 Hyomax-Sl 0.125 mg (*)] Medical Decision Making - Diagnostics EKG Interpretation: 12 lead EKG performed at 9:20 a.m., indication chest pain, Reveals sinus rhythm at 73 Intervals: Normal throughout [place]: Normal throughout ST segments: Normal throughout Overall assessment: Normal EKG Imaging Results: Two view chest x-ray: Normal by my interpretation Imaging: I viewed and interpreted images myself ED Course/Re-evaluation: IV, monitor, Maalox with improvement in discomfort. Patient declined Levsin Reviewed labs-normal POC CBC, basic metabolic panel, LFTs including amylase, D- dimer and troponin Discussion: Patient presents with chest pain and GERD symptoms. I think that the cause of her chest pain is from the GERD with potential esophageal spasm and counseled regarding this. Given lack of risk factors negative D-dimer effectively ruled out a pulmonary embolism. I do not think she has myocardial ischemia given lack of classic risk factors, symptoms EKG findings or elevation in troponin. Her chest x-ray is normal ruling out pneumothorax or pneumonia. Will plan to have her increase her antacid dose with plan to use Levsin if needed for any significant symptoms and follow up with Gastroenterology for further evaluation. She understands the need to return emergency department should she have any significant worsening of her symptoms despite the treatment plan - Data Points Medications Given: Discontinued Medications Al Hydroxide/Mg Hydroxide (Maalox Susp) 30 ml PO EDNOW ONE Stop: 07/22/18 09:47 Last Admin: 07/22/18 10:02 Dose: 30 ml Hyoscyamine Sulfate (Levsin, Hyomax-Sl) 0.125 mg PO EDNOW ONE Stop: 07/22/18 09:47 Last Admin: 07/22/18 10:02 Dose: 0.125 mg Point of Care Test Results: CBC CBC Collection Date 07/22/18 CBC Collection Time 09:50 WBC 5.5 RBC 4.76 HGB 15.1 HCT 42.5 PLT 198 Neut # 3.5 Neut 64.8 LYMPH # 1.3 LYMPH 23.0 Other WBC # 0.7 Other WBC 12.2 MCV 89.3 Chemistry 07/22/18 07/22/18 07/22/18 10:10 10:09 09:56 POC Sodium 142 mEq/L mEq/L (135-145) POC Potassium 3.7 mEq/L mEq/L (3.3-5.0) POC Chloride 103.0 mEq/L mEq/L (97-110) POC Total CO2 24 mEq/L mEq/L (22-31) POC BUN 11 mg/dL mg/dL (7-23) POC Creatinine 0.9 mg/dL mg/dL (0.6-1.0) POC Glucose 92 mg/dL mg/dL (70-100) POC Calcium 9.2 mg/dL mg/dL (8.5-10.4) POC Total Bilirubin 1.9 mg/dL H mg/dL (0.1-1.4) POC GGT < 5 IU/L L IU/L (5-65) POC AST 26 IU/L IU/L (14-46) POC ALT 12 IU/L IU/L (9-52) POC Alk Phosphatase 46 IU/L IU/L (38-126) POC Troponin I 0.00 ng/mL ng/mL (0.00-0.08) POC Total Protein 6.6 g/dL g/dL (6.3-8.2) POC Albumin 3.6 g/dL g/dL (3.5-5.0) POC Amylase 56 IU/L IU/L (30-110) D-Dimer D-Dimer Collection Date 07/22/18 D-Dimer Collection Time 09:50 D-Dimer (ng/ml) 100 Liver Function Tests LFT Collection Date 07/22/18 LFT Collection Time 09:50 Departure - Departure Disposition: Home, Routine, Self-Care Clinical Impression: Chest pain, GERD (gastroesophageal reflux disease) Condition: Good Instructions: Chest Pain (ED), Diet for Stomach Ulcers and Gastritis (ED) Additional Instructions: Diagnosis: 1. Chest pain 2. GERD You may also be having esophageal spasms and response to acid reflux. Plan: Consider increasing you're Zantac to 300 mg at bedtime Maalox in addition if needed for discomfort Levsin in addition under the tongue if needed for chest discomfort. [place] diet until he feel improved Follow up with Gastroenterology for any ongoing symptoms and for further evaluation Return emergency department for any significant worsening despite the treatment plan. Referrals: Lindsay Castellanos NETWORK SYSTEMS OPERATOR [Primary Care Provider] - As per Instructions Prescriptions: Hyoscyamine Sulfate [Levsin, Hyomax-Sl 0.125 mg (*)] 0.125 - 0.25 mg SL Q6 PRN # 20 tab PRN Reason: abdominal cramping
[2018-07-22 11:21] VITALS: BP 106/50
--- NOTE | 2018-07-24 10:22 | CPEKG ---
Test Reason : OPEN Blood Pressure : / mmHG Vent. Rate : 073 BPM Atrial Rate : 072 BPM P-R Int : 118 ms QRS Dur : 083 ms QT Int : 362 ms P-R-T Axes : 074 081 035 degrees QTc Int : 399 ms Sinus rhythm Confirmed by Biju Peguero ([id number]) on 07/24/2018 10:21:54 AM Referred By: Confirmed By:Biju Peguero
== END 2018-07-22 11:19 | disposition home or self-care (01) ==
LOC: CED 09:11
DX: R07.9 Chest pain, unspecified (principal); K21.9 Gastro-esophageal reflux disease without esophagitis; E03.9 Hypothyroidism, unspecified; K58.9 Irritable bowel syndrome, unspecified
CPT/HCPCS: 71046-PO; 80048-PO; 80076-PO; 82150-PO; 84484-ER